=== PATIENT | female | born 1980 ===

== ENCOUNTER 2016-06-24 14:31 | Outpatient (CLI) | payer OTHER | END 2016-06-24 14:32 | LOC: LAB 14:31 | PROVIDERS: ATTEND Physician Assistant | DX: Z02.83 Encounter for blood-alcohol and blood-drug test (principal) | CPT/HCPCS: 80377; G0481 ==

== ENCOUNTER 2016-07-17 11:29 | Outpatient (CLI) | payer MEDICAID ==
[2016-07-20 16:08] LABS: CANDIDA SPECIES DNA PROBE NEGATIVE (NEGATIVE); GARDNERELLA VAGINALIS NEGATIVE (NEGATIVE); TRICHOMONAS VAGINALIS NEGATIVE (NEGATIVE)
== END 2016-07-17 11:30 ==
LOC: LABRHC 11:29
PROVIDERS: ATTEND Physician Assistant
DX: Z12.4 Encounter for screening for malignant neoplasm of cervix (principal); Z11.3 Encounter for screening for infections with a predominantly sexual mode of transmission
CPT/HCPCS: 87480; 87491; 87510; 87591; 88148; G0143